=== PATIENT | female | born 2000 | race Caucasian/White ===

== ENCOUNTER 2018-11-03 20:51 | Emergency (ER) | payer OTHER | END 2018-11-03 20:57 | disposition left against medical advice (07) | LOC: UCEAST 20:51 | DX: Z53.8 Procedure and treatment not carried out for other reasons (principal) ==

== ENCOUNTER 2018-11-03 21:12 | Emergency (ER) | payer OTHER ==
[2018-11-03] MEDS ORDERED: Ketorolac INJ* 30 MG/ML 1 ML VIAL IM ONE (21:36)
[2018-11-03 21:50] LABS: ABS Eosinophils 0.1 10^3/ul (0-0.6); ABS Lymphocytes 2.5 10^3/ul (1.0-4.8); ABS Monocytes 0.5 10^3/ul (0-0.8); ABS Neutrophils 2.7 10^3/ul (1.5-7.7); Eosinophil % 1.5 %; Hematocrit 42 % (35-47); Hemoglobin 14.1 g/dL (12.0-16.0); Mean Corpuscular HGB Conc 34 g/dL (31-36); Mean Corpuscular Hemoglobin 31 pg (27-31); Mean Corpuscular Volume 91 fL (80-97); Mean Platelet Volume 9.2 fL (7.4-10.4); Nucleated Red Blood Cells % 0.2; Platelet Count 175 10^3/uL (150-450); Red Cell Distribution Width 13 % (10-15); White Blood Count 5.8 10^3/uL (3.5-10.8)
[2018-11-03 22:08] LABS: ALT 12 U/L (7-52); AST 20 U/L (13-39); Albumin 4.3 g/dL (3.2-5.2); Albumin/Globulin Ratio 1.6 (1-3); Alkaline Phosphatase 67 U/L (34-104); Anion Gap 5 mmol/L (2-11); BUN/Creatinine Ratio 12.3 (8-20); Blood Urea Nitrogen 10 mg/dL (6-24); CO2 Carbon Dioxide 29 mmol/L (22-32); Calcium 9.4 mg/dL (8.6-10.3); Chloride 106 mmol/L (101-111); EGFR African American 109.1 (>60); EGFR Non-African American 90.1 (>60); Globulin 2.7 g/dL (2-4); Glucose 97 mg/dL (70-100); Potassium 4.3 mmol/L (3.5-5.0); Sodium 140 mmol/L (135-145)
--- NOTE | 2018-11-03 22:08 | ED ---
GI/ HPI - HPI Summary HPI Summary: 18-year-old female presents with sudden onset of lower abdominal pain today. She states that she was lifting something when she sat down she developed the pain. Pain is located in the middle of her abdomen. She denies any nausea vomiting. No diarrhea or constipation. does admits to dysuria. No vaginal bleeding. No abnormal vaginal discharge. Has no medical conditions. - History of Current Complaint Chief Complaint: EDAbdPain Time Seen by Provider: 11/03/18 21:25 Stated Complaint: SEVERE ABD PAIN, HEAVY CRAMPING PER PT Pain Intensity: 6 - Allergy/Home Medications Allergies/Adverse Reactions: Allergies Allergy/AdvReac Type Severity Reaction Status Date / Time Milk Containing Products Allergy See Comment Verified 11/03/18 21:17 oseltamivir [From Tamiflu] Allergy GI Upset Verified 11/03/18 21:17 Home Medications: Home Medications ALPRAZolam [Alprazolam] 0.5 mg PO PRN 11/03/18 [History] Lisdexamfetamine Dimesylate [Vyvanse] 30 mg PO DAILY 11/03/18 [History Confirmed 11/03/18] Rizatriptan Benzoate [Maxalt Seafood Manager] 5 mg PO 11/03/18 [History] PMH/Surg Hx/FS Hx/Imm Hx Endocrine/Hematology History: Denies: Hx Diabetes Cardiovascular History: Denies: Hx Hypertension, Hx Pacemaker/ICD Sensory History: Denies: Hx Hearing Aid Psychiatric History: Denies: Hx Panic Disorder - Surgical History Surgery Procedure, Year, and Place: RT FEMUR BONE CYST DRAINAGE AND INFUSION OF BONE MAROW INTO CYST SITE- 1-2 YRS AGO - Immunization History Immunizations Up to Date: Yes Infectious Disease History: No Infectious Disease History: Denies: Traveled Outside the [place] in Last 30 Days - Social History Alcohol Use: Occasionally Substance Use Type: Reports: Marijuana Substance Use Comment - Amount & Last Used: summer 2017 Smoking Status (MU): Former Smoker Review of Systems Negative: Fever Negative: Chest Pain Negative: Shortness Of Breath Positive: Abdominal Pain. Negative: Vomiting, Diarrhea, Nausea All Other Systems Reviewed And Are Negative: Yes Physical Exam Triage Information Reviewed: Yes Vital Signs On Initial Exam: Initial Vitals Temp Pulse Resp BP Pulse Ox 98.7 F 81 16 119/78 97 11/03/18 21:14 11/03/18 21:14 11/03/18 21:14 11/03/18 21:14 11/03/18 21:14 Vital Signs Reviewed: Yes Appearance: Positive: Well-Appearing Skin: Positive: Warm, Dry Head/Face: Positive: Normal Head/Face Inspection Eyes: Positive: Normal, Conjunctiva Clear ENT: Positive: Pharynx normal Respiratory/Lung Sounds: Positive: Clear to Auscultation, Breath Sounds Present Cardiovascular: Positive: Normal, RRR Abdomen Description: Positive: Soft, Other: - tenderness suprapubic Bowel Sounds: Positive: Present Musculoskeletal: Positive: Normal Neurological: Positive: Normal Psychiatric: Positive: Normal Diagnostics - Vital Signs Vital Signs Temp Pulse Resp BP Pulse Ox 11/03/18 21:14 98.7 F 81 16 119/78 97 - Laboratory Lab Results: Lab Results 11/03/18 Range/Units 21:43 WBC 5.8 (3.5-10.8) 10^3/uL RBC 4.60 (3.70-4.87) 10^6 /uL Hgb 14.1 (12.0-16.0) g/dL Hct 42 (35-47) % MCV 91 (80-97) fL MCH 31 (27-31) pg MCHC 34 (31-36) g/dL RDW 13 (10-15) % Plt Count 175 (150-450) 10^3/uL MPV 9.2 (7.4-10.4) fL Neut % (Auto) 46.4 % Lymph % (Auto) 43.0 % [place] % (Auto) 8.3 % Eos % (Auto) 1.5 % Baso % (Auto) 0.8 % Absolute Neuts (auto) 2.7 (1.5-7.7) 10^3/ul Absolute Lymphs (auto) 2.5 (1.0-4.8) 10^3/ul Absolute Monos (auto) 0.5 (0-0.8) 10^3/ul Absolute Eos (auto) 0.1 (0-0.6) 10^3/ul Absolute Basos (auto) 0.0 (0-0.2) 10^3/ul Absolute Nucleated RBC 0.0 10^3/ul Nucleated RBC % 0.2 Result Diagrams: 11/03/18 21:43 11/03/18 21:43 Lab Statement: Any lab studies that have been ordered have been reviewed, and results considered in the medical decision making process. - Ultrasound No standard instances Ultrasound Interpretation Completed By: Radiologist Summary of Ultrasound Findings: IMPRESSION: IUD in place. Small free fluid. Re-Evaluation - Re-Evaluation First Eval Re-Evaluation Time: 11:20 Change: Improved Comment: pain better GIGU Course/Dx - Course Course Of Treatment: 18-year-old female presents with sudden onset of lower abdominal pain today. She states that she was lifting something when she sat down she developed the pain. Pain is located in the middle of her abdomen. She denies any nausea vomiting. No diarrhea or constipation. does admits to dysuria. No vaginal bleeding. No abnormal vaginal discharge. Has no medical conditions. On exam tenderness suprapubically. wbc normal. CBC normal. hcg negative. Ultrasound shows no acute findings. urine shows potential uti. will treat with bactrim. patient understand and agrees with plan. - Diagnoses Differential Diagnoses - Female: Ovarian Cyst, Ovarian Torsion, Urinary Tract Infection Provider Diagnoses: Pelvic pain, UTI (urinary tract infection) Discharge - Sign-Out/Discharge Documenting (check all that apply): Patient Departure Patient Received Moderate/Deep Sedation with Procedure: No - Discharge Plan Condition: Good Disposition: HOME Prescriptions: Sulfamethox/Trimethoprim DS* [Bactrim DS 800/160 TAB*] 1 tab PO BID #5 tab Patient Education Materials: Urinary Tract Infection in Women (ED) [facility] Care [facility] - Additional Instructions: take Bactrim twice a day for 3 days Take Tylenol or ibuprofen every 6 hours as needed for pain Return to ED if develop any new or worsening symptoms - Billing Disposition and Condition Condition: GOOD Disposition: Home
[2018-11-03 22:15] LABS: HCG Pregnancy < 0.60 mIU/mL
[2018-11-03 22:40] LABS: Urine Appearance Cloudy; Urine Bacteria 1+ (Absent); Urine Bilirubin Negative (Negative); Urine Blood Negative (Negative); Urine Color Yellow; Urine Glucose Negative (Negative); Urine Ketones Negative (Negative); Urine Nitrite Negative (Negative); Urine Protein Negative (Negative); Urine Red Blood Cell Trace(0-2/hpf) (Absent); Urine Specific Gravity 1.017 (1.010-1.030); Urine Squamous Epithelial Cell Present (Absent); Urine Urobilinogen Negative (Negative); Urine White Blood Cell Trace(0-5/hpf) (Absent)
[2018-11-03] MEDS ORDERED: Sulfamethox/Trimethoprim DS 800/160* TAB PO ONE (23:18)
[2018-11-03 23:32] VITALS: BP 109/61
== END 2018-11-03 23:31 | disposition home or self-care (01) ==
LOC: ED 21:12
DX: N39.0 Urinary tract infection, site not specified (principal); Z79.899 Other long term (current) drug therapy; Z88.8 Allergy status to other drugs, medicaments and biological substances; Z87.891 Personal history of nicotine dependence; Z97.5 Presence of (intrauterine) contraceptive device
CPT/HCPCS: 36415; 76830; 80053; 81003; 81015; 84702; 85025; 86140; 87086; 96372; 99283; A9270-GY; J1885

== ENCOUNTER 2019-01-09 15:12 | Emergency (ER) | payer OTHER ==
[2019-01-09] MEDS ORDERED: NS 0.9% 1000 ML** 1,000 ML IV ONE (16:02)
[2019-01-09 16:18] LABS: ABS Lymphocytes 1.6 10^3/ul (1.0-4.8); ABS Monocytes 0.4 10^3/ul (0-0.8); ABS Neutrophils 3.4 10^3/ul (1.5-7.7); Eosinophil % 0.8 %; Hematocrit 42 % (35-47); Hemoglobin 14.6 g/dL (12.0-16.0); Lymphocyte % 29.3 %; Mean Corpuscular HGB Conc 35 g/dL (31-36); Mean Corpuscular Hemoglobin 31 pg (27-31); Mean Corpuscular Volume 90 fL (80-97); Mean Platelet Volume 8.7 fL (7.4-10.4); Platelet Count 193 10^3/uL (150-450); Red Blood Count 4.69 10^6 /uL (3.70-4.87); Red Cell Distribution Width 13 % (10-15); White Blood Count 5.6 10^3/uL (3.5-10.8)
--- NOTE | 2019-01-09 16:38 | ED ---
Complex/Multi-Sys Presentation - HPI Summary HPI Summary: Pt is a 18 y/o F presenting to the ED with a chief complaint of fatigue. She states she began taking Topomax on 01/05/19 at night for headaches. Since that date, she has experienced increased thirst without relief from drinking water, decreased appetite, nausea, frequent urination, subjective fever, increased fatigue, and rhinorrhea. She denies diarrhea or sore throat. She was sent here from [facility] as they could not see her today and they are concerned she is dehydrated. Patient has been making urine today. 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 Patient's medications reviewed this visit. - History Of Current Complaint Chief Complaint: EDGeneral Time Seen by Provider: 01/09/19 16:01 Hx Obtained From: Patient Onset/Duration: Gradual Onset, Lasting Days, Still Present Timing: Constant, Days Severity Currently: Mild Severity Initially: Mild Location: Negative Associated Signs And Symptoms: Positive: Nausea, Decreased Oral Intake, Fever, Recent Medication Changes, Other - rhinorrhea. Negative: Diarrhea - Allergies/Home Medications Allergies/Adverse Reactions: Allergies Allergy/AdvReac Type Severity Reaction Status Date / Time Milk Containing Products Allergy See Comment Verified 01/09/19 16:34 oseltamivir [From Tamiflu] Allergy GI Upset Verified 01/09/19 16:34 Home Medications: Home Medications Albuterol HFA INHALER* [Ventolin HFA Inhaler*] 2 - 4 puff INH Q4H PRN 01/09/19 [ History Confirmed 01/09/19] Ketoconazole 1 applic TOPICAL WEEKLY 01/09/19 [History Confirmed 01/09/19] Levonorgestrel (IUD) (NF) [Mirena (NF)] 20 mcg IU ONCE 01/09/19 [History Confirmed 01/09/19] Melatonin (NF) 3 mg PO DAILY PRN 01/09/19 [History Confirmed 01/09/19] Rizatriptan (NF) [Maxalt-Coffee Taster (NF)] 5 mg PO DAILY PRN 01/09/19 [History Confirmed 01/09/19] Topiramate TAB(*) [Topamax 25 MG tab] 25 mg PO BEDTIME 01/09/19 [History Confirmed 01/09/19] PMH/Surg Hx/FS Hx/Imm Hx Previously Healthy: Yes Endocrine/Hematology History: Denies: Hx Diabetes Cardiovascular History: Denies: Hx Hypertension, Hx Pacemaker/ICD Sensory History: Denies: Hx Hearing Aid Psychiatric History: Reports: Hx Attention Deficit Hyperactivity Disorder Denies: Hx Panic Disorder - Surgical History Surgery Procedure, Year, and Place: RT FEMUR BONE CYST DRAINAGE AND INFUSION OF BONE MAROW INTO CYST SITE- 1-2 YRS AGO Infectious Disease History: No Infectious Disease History: Denies: Traveled Outside the [place] in Last 30 Days - Family History Known Family History: Positive: Non-Contributory Negative: Cardiac Disease - Social History Occupation: Student Lives: Dormitory/Roommates Alcohol Use: Occasionally Hx Substance Use: No Substance Use Type: Reports: None Hx Tobacco Use: No Smoking Status (MU): Never Smoked Tobacco Review of Systems Positive: Fever - tactile, Fatigue, Other - decreased appetite Positive: Nasal Discharge. Negative: Sore Throat Positive: Nausea. Negative: Diarrhea Positive: frequency All Other Systems Reviewed And Are Negative: Yes Physical Exam - Summary Physical Exam Summary: Vital Signs Reviewed: Yes A+Ox3, no distress Eyes: Conjunctiva Clear, ADRIANNA. EOM intact and full ENT: Hearing grossly normal TM x 2 clear, mmoist, uvula midline, no exudate, no erythema Neck: Positive: Supple Respiratory: Positive: No respiratory distress, No accessory muscle use + CTA throughout no w/r Cardiovascular: RRR nl s1, s2 no m/r CBT <2 sec abd soft + BS nt/nd no guarding, no distension Musculoskeletal Exam: ATKINS x 4 without difficulty Strength Intact, ROM Intact Neurological: Positive: Alert, + sensation throughout Psychological: Positive: Normal Response To examiner Skin: Positive: no rash, no ecchymosis Triage Information Reviewed: Yes Vital Signs On Initial Exam: Initial Vitals Temp Pulse Resp BP Pulse Ox 97.9 F 94 18 120/81 99 01/09/19 15:14 01/09/19 15:14 01/09/19 15:14 01/09/19 15:14 01/09/19 15:14 Vital Signs Reviewed: Yes Diagnostics - Vital Signs Vital Signs Temp Pulse Resp BP Pulse Ox 01/09/19 15:14 97.9 F 94 18 120/81 99 - Laboratory Lab Results: Lab Results 01/09/19 Range/Units 16:10 WBC 5.6 (3.5-10.8) 10^3/uL RBC 4.69 (3.70-4.87) 10^6 /uL Hgb 14.6 (12.0-16.0) g/dL Hct 42 (35-47) % MCV 90 (80-97) fL MCH 31 (27-31) pg MCHC 35 (31-36) g/dL RDW 13 (10-15) % Plt Count 193 (150-450) 10^3/uL MPV 8.7 (7.4-10.4) fL Neut % (Auto) 61.6 % Lymph % (Auto) 29.3 % [place] % (Auto) 7.6 % Eos % (Auto) 0.8 % Baso % (Auto) 0.7 % Absolute Neuts (auto) 3.4 (1.5-7.7) 10^3/ul Absolute Lymphs (auto) 1.6 (1.0-4.8) 10^3/ul Absolute Monos (auto) 0.4 (0-0.8) 10^3/ul Absolute Eos (auto) 0.0 (0-0.6) 10^3/ul Absolute Basos (auto) 0.0 (0-0.2) 10^3/ul Absolute Nucleated RBC 0.0 10^3/ul Nucleated RBC % 0.0 Result Diagrams: 01/09/19 16:10 01/09/19 16:10 Lab Statement: Any lab studies that have been ordered have been reviewed, and results considered in the medical decision making process. Re-Evaluation - Re-Evaluation First Eval Change: Improved - Patient states she feels "much better" after finishing IV fluids. Review patient's labs with her which are normal non-concerning. Encourage patient to continue her medications and keep her follow-up [facility] as scheduled this week. Return precautions discussed. Patient states agreement and comfortable with plan. Patient patient declined offer for any work place notes. Complex Multi-Symp Course/Dx Course Of Treatment: Patient presents to urgent care stating that she slipped concerned she is dehydrated. Patient has had decreased appetite, nausea, increased urine very frequency since starting a new medicine Topamax. Patient states she called [facility] and she is advised to come here. Patient without any pain. 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 On exam vital signs are stable. Patient well-appearing. We'll give fluids anti-emetics and check some labs. Patient comfortable in agreement with plan we'll reassess. - Diagnoses Provider Diagnoses: Weakness, Dehydration Discharge ED - Sign-Out/Discharge Documenting (check all that apply): Patient Departure Patient Received Moderate/Deep Sedation with Procedure: No - Discharge Plan Condition: Stable Disposition: HOME Prescriptions: Ondansetron ODT TAB* [Zofran 4 MG Odt TAB*] 4 mg PO Q4H PRN #10 tab.odt PRN Reason: Nausea Patient Education Materials: Dehydration (ED), Fatigue (ED) [facility] - Additional Instructions: - Stay well hydrated. Drink plenty of non-alcoholic, non-caffinated beverages - Okay to take medication as prescribed for nausea - get plenty of restful sleep -keep your appointment a scheduled at the [facility] next week. If you have any questions or concerns it is recommended you contact the [facility] or return to the emergency department for further evaluation - Billing Disposition and Condition Condition: STABLE Disposition: Home - Attestation Statements Document Initiated by Chichiibe: Yes Documenting Scribe: Mecca Goins Provider For Whom Piyush is Documenting (Include Credential): Merlene Samayoa MD. Scribe Attestation: Mecca Medrano, jacquelyned for Merlene Samayoa MD. on 01/10/19 at 2125. Scribe Documentation Reviewed: Yes Provider Attestation: The documentation as recorded by the Mecca knight accurately reflects the service I personally performed and the decisions made by me, Merlene Samayoa MD. Status of Scribe Document: Viewed
[2019-01-09 16:39] LABS: ALT 11 U/L (7-52); AST 20 U/L (13-39); Albumin/Globulin Ratio 1.8 (1-3); Alkaline Phosphatase 58 U/L (34-104); Anion Gap 8 mmol/L (2-11); BUN/Creatinine Ratio 10.8 (8-20); Blood Urea Nitrogen 10 mg/dL (6-24); CO2 Carbon Dioxide 25 mmol/L (22-32); Calcium 9.5 mg/dL (8.6-10.3); Chloride 105 mmol/L (101-111); EGFR Non-African American 76.9 (>60); Globulin 2.8 g/dL (2-4); Glucose 84 mg/dL (70-100); Potassium 3.5 mmol/L (3.5-5.0); Sodium 138 mmol/L (135-145); Total Protein 7.8 g/dL (6.4-8.9)
[2019-01-09 16:40] LABS: HCG Pregnancy < 0.60 mIU/mL
[2019-01-09] MEDS ORDERED: Ondansetron INJ* 2 MG/ML VIAL IV ONE (16:40)
[2019-01-09 17:25] LABS: TSH (Thyroid Stimulating Horm) 4.31 mcIU/mL (0.34-5.60)
[2019-01-09 18:20] VITALS: BP 110/65
[2019-01-12 14:27] LABS: EBV Capsid Ag IgG Ab Negative (Negative); EBV Capsid Ag IgM Ab Negative (Negative); Epstein-Barr Nuclear Antigen Negative (Negative)
== END 2019-01-09 18:20 | disposition home or self-care (01) ==
LOC: ED 15:12
DX: E86.0 Dehydration (principal); R53.1 Weakness; Z79.899 Other long term (current) drug therapy; Z88.7 Allergy status to serum and vaccine
CPT/HCPCS: 36415; 80053; 83735; 84443; 84702; 85025; 86308; 86664; 86665; 96361; 96374; 99282; J2405